=== PATIENT | female | born 1990 | race Caucasian/White ===

== ENCOUNTER 2019-06-07 10:00 | Observation (INO) | payer OTHER ==
[~2019-06-07] VITALS: Ht 168 cm; Wt 79.8 kg
[2019-06-07 11:18] VITALS: BP 117/78
[2019-06-07] MEDS ORDERED: PREN-217 PO (11:21)
== END 2019-06-07 11:30 | disposition home or self-care (01) ==
LOC: 4S 10:00
PROVIDERS: ADMIT Obstetrics & Gynecology; ATTEND Obstetrics & Gynecology
DX: O69.81X0 Labor and delivery complicated by cord around neck, without compression, not applicable or unspecified (principal); O46.93 Antepartum hemorrhage, unspecified, third trimester; Z3A.39 39 weeks gestation of pregnancy
CPT/HCPCS: 81002; G0378

== ENCOUNTER 2019-06-12 14:55 | Observation (INO) | payer OTHER ==
[~2019-06-12] VITALS: Ht 169 cm; Wt 80.7 kg
[~2019-06-12 14:55] MED LIST: PREN-217 PO
[2019-06-12 15:22] VITALS: BP 112/68
== END 2019-06-12 16:20 | disposition home or self-care (01) ==
LOC: 4S 14:55
PROVIDERS: ADMIT Obstetrics & Gynecology; ATTEND Obstetrics & Gynecology
DX: O46.93 Antepartum hemorrhage, unspecified, third trimester (principal); Z3A.39 39 weeks gestation of pregnancy
CPT/HCPCS: 81002; G0378

== ENCOUNTER 2019-06-14 10:45 | Inpatient (IN) | payer OTHER ==
[~2019-06-14] VITALS: Ht 168 cm; Wt 79.9 kg
[2019-06-14] MEDS ORDERED: RINGERS SOLUTION,LACTATED 1,000 ML IV PRN ×2 (12:15→12:22)
[2019-06-14] MEDS ORDERED: OXYGEN THERAPY IH SCH ×2 (12:15→12:30)
[2019-06-14] MEDS ORDERED: RINGERS SOLUTION,LACTATED 1,000 ML IV SCH (12:15)
[2019-06-14] MEDS ORDERED: METOCLOPRAMIDE HCL 5 MG/ML 2 ML VIAL IVP PRN ×2 (12:15→12:30)
[2019-06-14] MEDS ORDERED: CITRIC ACID/SODIUM CITRATE 30 ML SOLUTION UDCUP PO PRN ×2 (12:15→12:30)
[2019-06-14] MEDS ORDERED: OXYTOCIN 30 UNITS/LACT RINGERS 500 ML IV ONE (12:22)
[2019-06-14] MEDS ORDERED: RINGERS SOLUTION,LACTATED 1,000 ML IV ONE (12:26)
[2019-06-14] MEDS ORDERED: METHYLERGONOVINE MALEATE 0.2 MG/ML VIAL IM PRN (12:30)
[2019-06-14 12:47] VITALS: BP 110/78
[2019-06-14 13:07] LABS: BASOPHILS % (AUTO) 0.3 % (0.0-2.0); EOSINOPHILS % (AUTO) 0.5 % (1.0-6.0); HEMATOCRIT 39.8 % (36-46); HEMOGLOBIN 13.2 g/dL (12.0-16.0); LYMPHOCYTES # (AUTO) 1.4 K/uL (1.0-4.8); LYMPHOCYTES % (AUTO) 15.2 % (22.0-44.0); MEAN CORPUSCULAR HEMOGLOBIN 31.1 pg (26.0-34.0); MEAN CORPUSCULAR HGB CONC 33.2 G/dL (31.0-37.0); MEAN CORPUSCULAR VOLUME 94 fL (80-100); MONOCYTES # (AUTO) 0.4 K/uL (0.1-1.0); MONOCYTES % (AUTO) 4.2 % (2.0-9.0); NEUTROPHILS # (AUTO) 7.4 K/uL (1.8-7.7); NEUTROPHILS % (AUTO) 79.8 % (40.0-70.0); PLATELET COUNT (AUTO)-OB 188 K/uL (150-450); RED BLOOD CELL COUNT(AUTO) 4.26 MIL/uL (4.00-5.20); RED CELL DISTRIBUTION WIDTH 13.4 % (11.5-14.5)
[2019-06-14] MEDS ORDERED: OXYTOCIN 30 UNITS/LACT RINGERS 500 ML IV PRN (14:07)
[2019-06-14] MEDS ORDERED: ROPIVACAINE HCL/PF 0.2% 100 ML ED ONE (16:06)
[2019-06-14] MEDS ORDERED: LIDOCAINE/PF 2% 5 ML VIAL ONE (16:06)
[2019-06-14] MEDS: RINGERS SOLUTION,LACTATED 1,000 ML IV SCH ×2 (16:11→18:09)
[2019-06-14] MEDS: FentaNYL CITRATE-PF 100 MCG/2 ML VIAL IVP PRN ×2 (16:16→16:21)
[2019-06-14] MEDS ORDERED: NALBUPHINE HCL 10 MG/ML VIAL IVP PRN (18:15)
[2019-06-14] MEDS ORDERED: ONDANSETRON HCL 4 MG/2 ML VIAL IVP PRN (18:15)
[2019-06-14] MEDS ORDERED: DiphenhydrAMINE HCL 50 MG/ML VIAL IVP PRN (18:15)
[2019-06-14] MEDS ORDERED: ROPIVACAINE HCL/PF 0.2% 100 ML ED PRN (18:15)
[2019-06-14] MEDS ORDERED: CeFAZolin 2 GM/DEXTROSE 50 ML IV ONE ×2 (19:27→19:45)
[2019-06-14] MEDS ORDERED: ACETAMINOPHEN/CODEINE 300-30 MG TABLET PO PRN ×2 (20:45)
[2019-06-14] MEDS ORDERED: BENZOCAINE 20%/MENTHOL 56 GM SPRAY CANISTER TP PRN (20:45)
[2019-06-14] MEDS ORDERED: GLYCERIN/WITCH HAZEL LEAF 40 PADS JAR TP PRN (20:45)
[2019-06-14] MEDS ORDERED: LANOLIN 7 GM OINTMENT TP PRN (20:45)
[2019-06-14] MEDS ORDERED: MAGNESIUM HYDROXIDE SUSPENSION 30 ML UDCUP PO SCH (21:00)
[2019-06-14] MEDS: IBUPROFEN 800 MG TABLET PO SCH (21:43)
[2019-06-15] MEDS: IBUPROFEN 800 MG TABLET PO SCH (04:54)
[2019-06-15 08:10] VITALS: BP 115/65
[2019-06-15] MEDS ORDERED: IBUP-2071 PO (12:43)
[2019-06-15] MEDS ORDERED: DSS100 PO (12:44)
== END 2019-06-15 20:10 | disposition home or self-care (01) | DRG 807 ==
LOC: OBSVTOIN 10:45 → 4S 10:45
PROVIDERS: ADMIT Obstetrics & Gynecology; ATTEND Obstetrics & Gynecology
PROC: 10E0XZZ Delivery of Products of Conception, External Approach (ICD-10-PCS; principal; 2019-06-14)
PROC: 0W8NXZZ Division of Female Perineum, External Approach (ICD-10-PCS; 2019-06-14)
PROC: 3E0R3BZ Introduction of Anesthetic Agent into Spinal Canal, Percutaneous Approach (ICD-10-PCS; 2019-06-14)
PROC: 00HU33Z Insertion of Infusion Device into Spinal Canal, Percutaneous Approach (ICD-10-PCS; 2019-06-14)
DX: O69.82X0 Labor and delivery complicated by other cord entanglement, without compression, not applicable or unspecified (principal); Z37.0 Single live birth; Z3A.40 40 weeks gestation of pregnancy
CPT/HCPCS: 85461; 86850; 86870; 86900; 86901; J0690; J2590; J2795; J3010; J3490; J7120